=== PATIENT | female | born 1955 | race Caucasian/White ===

== ENCOUNTER 2022-02-27 05:12 | Day surgery (SDC) | payer OTHER ==
[~2022-02-27 05:12] MED LIST: SYNTHROID88 MCG PO; TOPROL XL50 M1 PO
[2022-02-27] MEDS ORDERED: PERCOCET 5-3251 EACH PO (09:02)
== END 2022-02-27 14:00 | disposition home or self-care (01) ==
LOC: CIR.AMB 05:12
PROVIDERS: ATTEND Surgery
DX: E21.0 Primary hyperparathyroidism (principal); D35.1 Benign neoplasm of parathyroid gland; I10 Essential (primary) hypertension; F17.210 Nicotine dependence, cigarettes, uncomplicated; E03.9 Hypothyroidism, unspecified; E21.3 Hyperparathyroidism, unspecified